=== PATIENT | female | born 1990 | race American Indian/Alaskan Native ===

== ENCOUNTER 2020-10-06 04:50 | Day surgery (SDC) | payer OTHER ==
[2020-10-02 19:15] VITALS: BMI 23.6
[2020-10-06] MEDS ORDERED: MIDAZOLAM HCL 2 MG/2 ML SINGLE DOSE VIAL ONE (08:08)
[2020-10-06] MEDS ORDERED: PROPOFOL 20 ML ONE (08:08)
[2020-10-06] MEDS ORDERED: ACETAMINOPHEN 325 MG TABLET (FP) PO PRN (08:58)
[2020-10-06] MEDS ORDERED: IBUPROFEN 400 MG TABLET (FP) PO PRN (08:58)
[2020-10-06 10:26] VITALS: TEMP 97.4
[2020-10-06] MEDS ORDERED: IBUPROFEN 400 MG TABLET (FP) PO ONE (10:58)
[2020-10-06 11:54] VITALS: BP 110/70; PULSE 70
== END 2020-10-06 11:52 | disposition home or self-care (01) ==
LOC: JASU-SURG 04:50
PROVIDERS: ATTEND Obstetrics & Gynecology
PROC: 0UJD8ZZ Inspection of Uterus and Cervix, Via Natural or Artificial Opening Endoscopic (ICD-10-PCS; 2020-10-06)
PROC: 0UB97ZX Excision of Uterus, Via Natural or Artificial Opening, Diagnostic (ICD-10-PCS; principal; 2020-10-06 08:30)
PROC: 0UDB7ZX Extraction of Endometrium, Via Natural or Artificial Opening, Diagnostic (ICD-10-PCS; 2020-10-06 08:30)
DX: N84.0 Polyp of corpus uteri (principal)
CPT/HCPCS: 81025; 88305-TC; 94760